=== PATIENT | female | born 1995 | race African-American/Black ===

== ENCOUNTER 2016-08-06 23:51 | Emergency (ER) | payer SELFPAY ==
[~2016-08-06] VITALS: Ht 165.1 cm; Wt 62.0 kg
[2016-08-07] MEDS ORDERED: LORAZEPAM 2MG/ML CPJ IM STA (01:08)
[2016-08-07] MEDS ORDERED: DIPHENHYDRAMINE 50MG/ML VIAL IM STA (01:08)
[2016-08-07] MEDS ORDERED: HALOPERIDOL LACTATE 5MG/ML VIAL IM STA (01:08)
[2016-08-07 01:26] LABS: CHLORIDE 102 mEq/L (98-107); EOSINOPHILS % 5.5 % (0.0-5.0); HEMATOCRIT. 38.3 % (36.0-48.0); HEMOGLOBIN. 12.6 g/dL (12.0-16.0); INDEX HEMOLYSI 1 (1-3); INDEX ICTERIC 1 (1-4); INDEX LIPEMIC 1 (1-3); MEAN CORPUSCULAR HEMOGLOBIN 27.3 pg (28.0-32.0); MEAN CORPUSCULAR HGB CONC 32.9 g/dL (31.0-37.0); MEAN PLATELET VOLUME 8.5 fl (7.4-10.4); MONOCYTES % 7.4 % (2.0-8.0); NEUTROPHILS % 38.1 % (40.0-76.0); PLATELET 273 x1000/uL (130-400); RED BLOOD CELL COUNT 4.61 mill/uL (4.2-5.4); WHITE BLOOD COUNT 4.5 x1000/uL (4.5-11.0)
[2016-08-07 01:29] LABS: PROTHROMBIN TIME 10.4 sec
[2016-08-07 01:35] LABS: ACETAMINOPHEN < 2 ug/mL (10-30); ALANINE AMINOTRANSFERASE 22 IU/L (13-61); ALBUMIN 3.9 g/dL (3.4-5.0); ANION GAP 18; CALCIUM 8.7 mg/dL (8.5-10.1); CARBON DIOXIDE 23 mEq/L (21-32); ETHANOL BLOOD < 10 mg/dL; UREA NITROGEN BLOOD 9 mg/dL (7-21); eGFR > 60 mL/min (>60)
[2016-08-07 01:37] LABS: HCG SCREEN NEGATIVE
[2016-08-07 02:30] LABS: CLARITY URINE CLEAR (CLEAR); COLOR URINE YELLOW (YELLOW); GLUCOSE URINE NEGATIVE (NEGATIVE); KETONES URINE TRACE (NEGATIVE); LEUKOCYTE ESTERASE URINE NEGATIVE (NEGATIVE); NITRITE URINE NEGATIVE (NEGATIVE); OCCULT BLOOD URINE NEGATIVE (NEGATIVE); PROTEIN URINE 1+ (NEGATIVE); SPECIFIC GRAVITY URINE 1.025 (1.005-1.030)
[2016-08-07 02:39] LABS: BACTERIA URINE TRACE; RBC URINE 0-2 /hpf (0-2); SQUAMOUS EPITHELIAL CELL URINE FEW /lpf (RARE/1+); WBC URINE 0-2 /hpf (0-2)
[2016-08-07 02:52] LABS: *AMPHETAMINES SCREEN URINE NEGATIVE (NEGATIVE); *BARBITURATES SCREEN URINE NEGATIVE (NEGATIVE); *BENZODIAZEPINES SCREEN URINE NEGATIVE (NEGATIVE); *COCAINE SCREEN URINE NEGATIVE (NEGATIVE); ECSTASY MDMA SCREEN URINE NEGATIVE (NEGATIVE); METHADONE URINE SCREEN NEGATIVE (NEGATIVE)
[2016-08-07 02:53] LABS: OPIATES URINE SCREEN NEGATIVE (NEGATIVE); PHENCYCLIDINE URINE SCREEN NEGATIVE (NEGATIVE)
[2016-08-07 02:55] LABS: CANNABINOID URINE SCREEN PRESUMTIVE POSITIVE (NEGATIVE)
[2016-08-07 08:40] VITALS: BP 119/54
== END 2016-08-07 09:56 | disposition home or self-care (01) ==
LOC: ER 23:55
DX: R45.1 Restlessness and agitation (principal); F12.10 Cannabis abuse, uncomplicated
CPT/HCPCS: 36415; 51702; 70450; 80053; 80305; 80307; 80329; 81001; 84703; 85025; 85610; 93005; 96372; 99285; G0482; J1200; J1630; J2060; J7030; Z7610